=== PATIENT | male | born 1990 | race Caucasian/White ===

== ENCOUNTER 2019-10-30 12:09 | Inpatient (IN) | payer MEDICAID ==
[~2019-10-30] VITALS: Ht 162.6 cm; Wt 61.0 kg
--- NOTE | 2019-10-30 12:34 | NUR ---
PT FROM LOBBY TO ROOM AT THIS TIME
--- NOTE | 2019-10-30 12:49 | NUR ---
Assumed care of pt. Pt ambulatory to ED from home. "I need dialysis". Gets dialysis //Sat. Last dialysis Thursday. Missed d/t holiday, unable to drive home yesterday d/t weather. Lives in [place], dialysis in [place]. C/o tingling in hands and feet but no other complaints. A&Ox4 GCS 15. 2 old clotted off fistulas in L arm, has dialysis cath. Dr. Hudson at bedside for eval. labs at bedside. vss. call hook in reach.
[2019-10-30] MEDS ORDERED: LANT500T3 PO (12:53)
[2019-10-30] MEDS ORDERED: TACR5CAP2 PO (12:53)
[2019-10-30] MEDS ORDERED: SODIUM CHLORIDE FLUSH 10ML SYR IVF ONE (13:00)
[2019-10-30 13:01] LABS: BASOPHILS # (AUTO) 0.02 x10^3/uL (0-0.1); BASOPHILS % (AUTO) 0 % (0-1); EOSINOPHILS # (AUTO) 0.14 x10^3/uL (0-0.4); EOSINOPHILS % (AUTO) 1 % (1-7); LYMPHOCYTES # (AUTO) 0.78 x10^3/uL (1-3.4); LYMPHOCYTES % (AUTO) 7 % (22-44); MD NO; MEAN CORPUSCULAR HEMOGLOBIN 32.6 pg (27.5-34.5); MEAN CORPUSCULAR HGB CONC 33.5 g/dL (33.2-36.2); MEAN CORPUSCULAR VOLUME 97.5 fL (81-97); MEAN PLATELET VOLUME 7.3 fL (7.4-10.4); MONOCYTES # (AUTO) 0.45 x10^3/uL (0.2-0.8); MONOCYTES % (AUTO) 4 % (2-9); NEUTROPHILS # (AUTO) 9.84 x10^3/uL (1.8-6.8); NEUTROPHILS % (AUTO) 88 % (42-75); PLATELET COUNT 253 x10^3/uL (130-400); RED BLOOD COUNT 2.87 x10^6/uL (4.38-5.82); RED CELL DISTRIBUTION WIDTH 13.9 % (9.4-14.8)
[2019-10-30 13:09] LABS: ALANINE AMINOTRANSFERASE 22 U/L (12-78); ANION GAP 8 mmol/L (5-15); CHLORIDE 107 mmol/L (98-107)
[2019-10-30 13:13] LABS: ALKALINE PHOSPHATASE 120 U/L (45-117); BILIRUBIN,TOTAL 0.5 mg/dL (0.2-1.0); TOTAL PROTEIN 6.7 g/dL (6.4-8.2)
[2019-10-30] MEDS ORDERED: APIX5TAB PO (13:14)
[2019-10-30] MEDS ORDERED: FOLI0.8T22 PO (13:14)
[2019-10-30] MEDS ORDERED: INSULIN SINGLE DOSE, ER ONE (13:28)
[2019-10-30] MEDS ORDERED: DEXTROSE 50%, 50ML SYRINGE IVPush ONE ×3 (13:30→19:00)
[2019-10-30] MEDS ORDERED: INSULIN REGULAR 100 UNITS/ML, 3ML VIAL IVPush ONE (13:30)
[2019-10-30] MEDS ORDERED: CALCIUM CHLORIDE 10%, 10ML SYR IVPush ONE (13:30)
[2019-10-30] MEDS ORDERED: CALCIUM CHLORIDE 10%, 10ML SYR ONE (13:32)
--- NOTE | 2019-10-30 14:01 | NUR ---
dr carrillo spoke with dr chang
--- NOTE | 2019-10-30 14:04 | NUR ---
IM MD at bedside for eval meds per jan, K 5.9 piv est. vss. pt asking for water.
--- NOTE | 2019-10-30 14:28 | NUR ---
Dr. Kenyon in room to speak w/ pt. Pt given ice water. vss.
[2019-10-30] MEDS ORDERED: ONDANSETRON ODT 4 MG PO PRN (14:30)
[2019-10-30] MEDS ORDERED: ONDANSETRON 2MG/ML, 2ML IVPush PRN (14:30)
--- NOTE | 2019-10-30 15:42 | NUR ---
UPON TRANSPORT UP TO DIALYSIS PT FOUND TO BE DROWSY BY AROUSABLE, DIAPHORETIC, BLOOD SUGAR CHECKED SHOWING 39. DR NUNEZ UPDATED IMMEDIATELY, VERBAL ORDER RECEIVED FOR AMP OF DEXTROSE. PHARM CALLED TO GET MED TUBED. PT AWAKE ENOUGH TO RECEIVE ORAL ORANGE JUICE. 2 CUPS OF OJ GIVEN TO PT. PT BECOMING MORE ALERT AT THIS TIME
--- NOTE | 2019-10-30 15:48 | NUR ---
report to Catherine ABDUL.
--- NOTE | 2019-10-30 16:01 | NUR ---
Updated floor RN of bgl, recheck 235. Plan for transport.
[2019-10-30] MEDS: LANTHANUM CARBONATE 500 MG HOMEMEDPO SCH ×2 (17:25→20:35)
[2019-10-30] MEDS ORDERED: DEXTROSE 4 GM TAB.CHEW PO PRN (19:00)
[2019-10-30] MEDS ORDERED: GLUCAGON 1 MG IM PRN (19:00)
[2019-10-30] MEDS ORDERED: DEXTROSE 50%, 50ML SYRINGE IVPush PRN (19:00)
[2019-10-30 20:15] VITALS: BP 126/59
[2019-10-30] MEDS: SODIUM CHLORIDE FLUSH 10ML SYR IVF SCH (20:35)
[2019-10-30] MEDS: APIXABAN 5 MG TABLET PO SCH (20:35)
[2019-10-30] MEDS: TACROLIMUS 1 MG CAPSULE PO SCH (20:35)
[2019-10-30] MEDS: NICOTINE 7 MG/24 HR PATCH.TD24 TD SCH (23:03)
[2019-10-31 01:49] VITALS: BP 114/73
[2019-10-31 06:51] LABS: ANION GAP 10 mmol/L (5-15); CALCIUM 7.5 mg/dL (8.5-10.1); CHLORIDE 98 mmol/L (98-107)
[2019-10-31 06:52] LABS: CREATININE 7.94 mg/dL (0.7-1.3)
[2019-10-31 06:55] VITALS: BP 117/69
[2019-10-31 07:08] LABS: BASOPHILS # (AUTO) 0.03 x10^3/uL (0-0.1); BASOPHILS % (AUTO) 0 % (0-1); EOSINOPHILS # (AUTO) 0.28 x10^3/uL (0-0.4); EOSINOPHILS % (AUTO) 3 % (1-7); LYMPHOCYTES # (AUTO) 1.09 x10^3/uL (1-3.4); LYMPHOCYTES % (AUTO) 11 % (22-44); MD NO; MEAN CORPUSCULAR HEMOGLOBIN 32.6 pg (27.5-34.5); MEAN CORPUSCULAR HGB CONC 33.4 g/dL (33.2-36.2); MEAN CORPUSCULAR VOLUME 97.5 fL (81-97); MEAN PLATELET VOLUME 7.8 fL (7.4-10.4); MONOCYTES # (AUTO) 0.69 x10^3/uL (0.2-0.8); MONOCYTES % (AUTO) 7 % (2-9); NEUTROPHILS # (AUTO) 7.43 x10^3/uL (1.8-6.8); NEUTROPHILS % (AUTO) 78 % (42-75); PLATELET COUNT 226 x10^3/uL (130-400); RED BLOOD COUNT 2.94 x10^6/uL (4.38-5.82); RED CELL DISTRIBUTION WIDTH 14.1 % (9.4-14.8)
[2019-10-31] MEDS: MULTIVITS,STRESS FORMULA 1 TABLET PO SCH (08:32)
[2019-10-31] MEDS: SODIUM CHLORIDE FLUSH 10ML SYR IVF SCH ×2 (08:32→20:17)
[2019-10-31] MEDS: TACROLIMUS 1 MG CAPSULE PO SCH ×2 (08:32→20:17)
[2019-10-31] MEDS: APIXABAN 5 MG TABLET PO SCH ×2 (08:32→20:16)
[2019-10-31] MEDS: LANTHANUM CARBONATE 500 MG HOMEMEDPO SCH ×3 (08:33→20:17)
[2019-10-31] MEDS ORDERED: ARANESP 100 MCG/ML **ESRD SQ SCH (10:00)
[2019-10-31 12:26] VITALS: BP 122/73
[2019-10-31 20:00] VITALS: BP 135/82
[2019-10-31] MEDS: NICOTINE 7 MG/24 HR PATCH.TD24 TD SCH (22:11)
[2019-10-31] MEDS: ACETAMINOPHEN 325 MG TABLET PO PRN (22:11)
[2019-11-01] MEDS ORDERED: LIDODERM 5% PATCH TD ONE (00:30)
[2019-11-01 01:31] VITALS: BP 128/77
[2019-11-01 06:14] LABS: BASOPHILS # (AUTO) 0.06 x10^3/uL (0-0.1); BASOPHILS % (AUTO) 1 % (0-1); EOSINOPHILS # (AUTO) 0.48 x10^3/uL (0-0.4); EOSINOPHILS % (AUTO) 6 % (1-7); LYMPHOCYTES # (AUTO) 1.29 x10^3/uL (1-3.4); LYMPHOCYTES % (AUTO) 16 % (22-44); MD NO; MEAN CORPUSCULAR HEMOGLOBIN 32.2 pg (27.5-34.5); MEAN CORPUSCULAR VOLUME 97.6 fL (81-97); MEAN PLATELET VOLUME 7.4 fL (7.4-10.4); MONOCYTES # (AUTO) 0.74 x10^3/uL (0.2-0.8); MONOCYTES % (AUTO) 9 % (2-9); NEUTROPHILS # (AUTO) 5.58 x10^3/uL (1.8-6.8); NEUTROPHILS % (AUTO) 69 % (42-75); PLATELET COUNT 217 x10^3/uL (130-400); RED BLOOD COUNT 3.25 x10^6/uL (4.38-5.82); RED CELL DISTRIBUTION WIDTH 14.3 % (9.4-14.8)
[2019-11-01 06:16] LABS: ANION GAP 7 mmol/L (5-15); CALCIUM 8.5 mg/dL (8.5-10.1); CHLORIDE 105 mmol/L (98-107); CREATININE 5.87 mg/dL (0.7-1.3)
[2019-11-01 08:00] VITALS: BP 130/77
[2019-11-01] MEDS: TACROLIMUS 1 MG CAPSULE PO SCH (08:32)
[2019-11-01] MEDS: MULTIVITS,STRESS FORMULA 1 TABLET PO SCH (08:32)
[2019-11-01] MEDS: APIXABAN 5 MG TABLET PO SCH (08:32)
[2019-11-01] MEDS: LANTHANUM CARBONATE 500 MG HOMEMEDPO SCH (08:32)
[2019-11-01] MEDS: SODIUM CHLORIDE FLUSH 10ML SYR IVF SCH (08:32)
[2019-11-01] MEDS: ACETAMINOPHEN 325 MG TABLET PO PRN (10:24)
[2019-11-01 13:13] VITALS: BP 128/75
== END 2019-11-01 15:28 | disposition home or self-care (01) | DRG 425 ==
LOC: ED 13:39 → INTOOBSV 13:46 → EDIP 13:46 → 4EST 16:09 → OBSVTOIN 10-31 16:08 → DCLOUNGE 11-01 15:21
PROVIDERS: ADMIT Internal Medicine; ATTEND Internal Medicine
PROC: 5A1D70Z Performance of Urinary Filtration, Intermittent, Less than 6 Hours Per Day (ICD-10-PCS; principal; 2019-10-31)
PROC: 5A1D70Z Performance of Urinary Filtration, Intermittent, Less than 6 Hours Per Day (ICD-10-PCS; 2019-11-01)
DX: E87.5 Hyperkalemia (principal); D68.59 Other primary thrombophilia; I12.0 Hypertensive chronic kidney disease with stage 5 chronic kidney disease or end stage renal disease; N18.6 End stage renal disease; D63.1 Anemia in chronic kidney disease; Z88.8 Allergy status to other drugs, medicaments and biological substances; Z79.01 Long term (current) use of anticoagulants; Z86.711 Personal history of pulmonary embolism; Z99.2 Dependence on renal dialysis
CPT/HCPCS: 36415; 80048; 80053; 82962; 83735; 84100; 85025; 86706; 86803; 87340; 93005; G0378; J0882; J1815; J7507

== ENCOUNTER 2019-11-01 22:48 | Emergency (ER) | payer MEDICAID ==
[~2019-11-01] VITALS: Ht 152.4 cm; Wt 55.0 kg
[~2019-11-01 22:48] MED LIST: APIX5TAB PO; FOLI0.8T22 PO; LANT500T3 PO; TACR5CAP2 PO
--- NOTE | 2019-11-01 23:40 | NUR ---
pt to room from lobby
[2019-11-02] MEDS ORDERED: ONDANSETRON ODT 8 MG PO ONE
[2019-11-02] MEDS ORDERED: LORazepam 1MG TABLET PO ONE
[2019-11-02] MEDS ORDERED: ONDANSETRON 2MG/ML, 2ML ONE (00:06)
[2019-11-02] MEDS ORDERED: LORazepam 2 MG/ML, 1ML ONE (00:06)
[2019-11-02] MEDS ORDERED: ONDANSETRON ODT 8 MG ONE (00:18)
[2019-11-02 00:47] VITALS: BP 124/74
== END 2019-11-02 00:49 | disposition home or self-care (01) ==
LOC: ED 11-02 00:06
DX: R11.2 Nausea with vomiting, unspecified (principal); N18.9 Chronic kidney disease, unspecified; F41.1 Generalized anxiety disorder; F17.200 Nicotine dependence, unspecified, uncomplicated; Z99.2 Dependence on renal dialysis
CPT/HCPCS: 99283; Q0162